=== PATIENT | male | born 1995 | race Caucasian/White ===

== ENCOUNTER 2020-03-18 14:54 | Emergency (ER) | payer MEDICAID, SELFPAY ==
[2020-03-18 15:18] VITALS: BP 137/86; PULSE 89; RESP 19; TEMP 36.6; O2SAT 98; BMI 31.8
--- NOTE | 2020-03-18 15:25 | HMH.EDUTC ---
[facility] [place] Impression: Close exposure to COVID-19 virus Disposition: Home, Self-Care Condition on Discharge: Good Instructions: DI for COVID-19 (Suspected or Confirmed ), COVID-19 Viral Test, Preventing the Spread of Coronavirus Discharge Instructions Additional Instructions: *Monitor Temp, Over the counter Motrin or Tylenol as directed/as needed Tylenol every 4 hours and Motrin every 6 hours (as long as your family doctor has told you that you can take it) for fever or pain. and straight to ER if unable to lower temp less than 101.0 after medication given *Warm salt water gargles may help to soothe the throat *Throat Lozenges *Warm fluids like tea with honey may help to soothe the throat *Sleep elevated *Humidifier/Vaporizer Bromfed may cause drowsiness. Know how it effects you (your child) before driving, caring for small child, or sending your child to school. Not other antihistamines/allergy medications while taking bromfed Follow up IMMEDIATELY for new or worsening symptoms or no Noticeable improvement over the next 48-72 hours. 911 for difficulty breathing or swallowing You were tested for today for COVID19 your test result should be back in the next 24-48 hours, you may call to the [facility] to see if your test results are back in the next 48 hours [phone] [facility] hours are 9am-9pm You was given a handout with instructions for Self Quarantine and Self isolation for while you wait on test results and what to do if they are positive If you are positive the Health Dept will be contacting you also Prescriptions: Brompheniramine/Pseudoephed/Dm [Bromfed Dm Cough Syrup] 5 - 10 ml PO Q46H PRN #150 ml PRN Reason: Cough Prescription Printed Referrals: PCP,No [Primary Care Provider] - As needed Forms: Work/School Release Time of Disposition: 15:29 Medical Decision Making - Gold Inquiry Pt receiving controlled substance: No Gold was queried for this patient: No Vital Signs: 03/18/20 15:18 Temperature 97.8 F Temperature Source Oral Pulse Rate [Right Brachial] 89 Respiratory Rate 19 Blood Pressure [Right Arm] 137/86 Blood Pressure Mean [Right Arm] 103 Blood Pressure Source [Right Arm] Automatic Cuff Blood Pressure Position [Right Arm] Sitting 02 Sat by Pulse Oximetry 98 Oxygen Delivery Method Room Air Orders (Tests/Meds): ORDERS Category Date Time Status Covid-19 Nasal PCR ([facility]) Routine Lab 03/18/20 15:00 [place] [facility] [place] - General Stated complaint: Covid test Time Seen by Provider: 03/18/20 15:25 Mode of Arrival: Ambulatory Source of Information: Patient Limitations: No Limitations Description of Symptoms (Recalled from Triage Doc. by RN): C/O COUGH X 2 DAYS HEENT Symptoms (Recalled from RN notes): No Resp Symptoms (Recalled from RN notes): No Skin Symptoms (Recalled from RN notes): No MS Symptoms (Recalled from RN notes): No Functional Status (Recalled from RN notes): WNL - History of Present Illness Provider Complaint: Patient states that several people in his household has recently tested positive for COVID States that he has been having cough and naggy headache on and off and wanted to come in and get tested for COVID - Related Data Previous Rx's Medication Instructions Recorded Brompheniramine/Pseudoephed/Dm 5 - 10 ml PO Q46H PRN #150 ml 03/18/20 [Bromfed Dm Cough Syrup] Allergies Allergy/AdvReac Type Severity Reaction Status Date / Time No Known Allergies Allergy Verified 11/08/18 16:50 - Worker's Comp Is this a Worker's Comp case?: No [facility] History - Hepatitis A Screen Drug use history?: No High risk sexual behaviors?: No History of sexually transmitted infection?: No Currently employed?: No Childcare worker?: No Do you have indoor plumbing?: Yes Do you have electricity?: Yes Attestation statement:: This patient has been screened for Hepatitis A risk factors. I have reviewed the patient's past medical history: Yes Other S
[2020-03-18 15:33] VITALS: BP 137/86; PULSE 89; RESP 19; TEMP 36.6; O2SAT 98
--- NOTE | 2020-03-18 20:29 | PC.NURSE ---
PT CALLED ABOUT COVID RESULTS BUT DID NOT GET AN ANSWER SO I LEFT A VOICEMAIL TELLING HIM TO CALL US AT HIS EARLIEST CONVENIENCE
--- NOTE | 2020-03-18 20:37 | PC.NURSE ---
PT CALLED BACK AND WAS NOTIFIED OF POSITIVE COVID RESULT
== END 2020-03-18 15:40 | disposition home or self-care (01) ==
PROVIDERS: Emergency Provider Nurse Practitioner
DX: U07.1 COVID-19 (principal)
CPT/HCPCS: 99201; U0003

== ENCOUNTER 2020-08-26 11:03 | Emergency (ER) | payer OTHER, SELFPAY ==
[2020-08-26 11:17] VITALS: BP 129/80; PULSE 96; RESP 18; TEMP 37.1; O2SAT 98; BMI 34.9
[2020-08-26 11:32] LABS: UTC Strep Screen (Rapid) Negative (Negative)
--- NOTE | 2020-08-26 11:37 | HMH.EDUTC ---
[facility] [place] Disposition Clinical Impression: Sinusitis Qualifiers: Sinusitis location: unspecified location Chronicity: acute Recurrence: non-recurrent Qualified Code(s): J01.90 - Acute sinusitis, unspecified Disposition: Home, Self-Care Condition on Discharge: Good Instructions: DI for Sinusitis Additional Instructions: Drink plenty of fluids. Take tylenol for pain or fever. Return if you begin to have difficulty breathing. Follow up with your regular doctor. GO TO THE ER FOR ANY WORSENING SYMPTOMS Prescriptions: methylPREDNISolone [Medrol] 4 mg PO DIRECTED 6 Days #21 [email or web address] Transmission Status: Received by [id number] Benzonatate [Tessalon Perle 100mg Cap] 100 mg PO TIDP PRN #30 cap PRN Reason: Cough Transmission Status: Received by [id number] Azithromycin [Z-Ilan 250mg Tab*] 250 mg PO UD DOSE PK #6 tab Transmission Status: Received by [id number] Referrals: Provider,Referral, [Primary Care Provider] - Forms: Work/School Release Time of Disposition: 11:48 Medical Decision Making - Medical Records Medical records reviewed: No: I reviewed the patient's medical records. - Gold Inquiry Pt receiving controlled substance: No Vital Signs: 08/26/20 11:17 08/26/20 11:49 Temperature 98.8 F 98.8 F Temperature Source Oral Oral Pulse Rate 96 H Pulse Rate [Right Radial] 96 H Respiratory Rate 18 18 Blood Pressure 129/80 Blood Pressure [Right Arm] 129/80 Blood Pressure Mean [Right Arm] 96 02 Sat by Pulse Oximetry 98 Oxygen Delivery Method Room Air Room Air - Lab Data Lab results reviewed: Yes: I reviewed the patient's lab results. Lab Results 08/26/20 11:23: Strep Scn Rapid Clinic Negative Orders (Tests/Meds): ORDERS Category Date Time Status Strep Screen Confirmation Stat Micro 08/26/20 11:[address] [facility] [place] HPI - General Stated complaint: Nasal Drainage cough Time Seen by Provider: 08/26/20 11:37 Mode of Arrival: Ambulatory Source of Information: Patient Limitations: No Limitations Description of Symptoms (Recalled from Triage Doc. by RN): sinus pressure, sore throat, productive cough w/light green sputum, and SOA HEENT Symptoms (Recalled from RN notes): Yes Resp Symptoms (Recalled from RN notes): Yes Skin Symptoms (Recalled from RN notes): No MS Symptoms (Recalled from RN notes): No Functional Status (Recalled from RN notes): na - History of Present Illness Provider Complaint: He c/o sinus congestion, cough, sore throat, nausea and diarrhea for the past 3 days. He had covid-19 late last year. He says that this doesn't feel like covid did, but he would like to be checked any way. - Related Data Previous Rx's Medication Instructions Recorded Brompheniramine/Pseudoephed/Dm 5 - 10 ml PO Q46H PRN #150 ml 03/18/20 [Bromfed Dm Cough Syrup] Azithromycin [Z-Ilan 250mg Tab*] 250 mg PO UD DOSE PK #6 tab 08/26/20 Benzonatate [Tessalon Perle 100mg 100 mg PO TIDP PRN #30 cap 08/26/20 Cap] methylPREDNISolone [Medrol] 4 mg PO DIRECTED 6 Days #21 08/26/20 tab.[email or web address] Allergies Allergy/AdvReac Type Severity Reaction Status Date / Time No Known Allergies Allergy Verified 08/26/20 11:06 - Worker's Comp Is this a Worker's Comp case?: No [facility] History - Hepatitis A Screen Drug use history?: No High risk sexual behaviors?: No History of sexually transmitted infection?: No Currently employed?: No Childcare worker?: No Do you have indoor plumbing?: Yes Do you have electricity?: Yes Attestation statement:: This patient has been screened for Hepatitis A risk factors. I have reviewed the patient's past medical history: Yes Other Surgeries: Yes: No Previous Surgery - Social History Smoking Status: Never smoker Alcohol Intake: never Substance Use Type: denies use Occupational Status: other Housing: house Household Members: family Family Hx:: Diabetes, Cancer ROS Obtained: Yes All systems reviewed & no addition
[2020-08-26 11:49] VITALS: BP 129/80; PULSE 96; RESP 18; TEMP 37.1; O2SAT 98
== END 2020-08-26 11:51 | disposition home or self-care (01) ==
PROVIDERS: Emergency Provider Nurse Practitioner Family
DX: J01.90 Acute sinusitis, unspecified (principal); Z20.822 Contact with and (suspected) exposure to COVID-19
CPT/HCPCS: 87880; 99202; G0463; U0003